=== PATIENT | female | born 1990 | race Caucasian/White ===

== ENCOUNTER 2023-11-12 16:43 | Emergency (ER) | payer OTHER, SELFPAY ==
[2023-11-12 16:59] VITALS: BP 129/100
[2023-11-12 18:19] VITALS: BMI 20.7
[2023-11-12 18:39] LABS: % Basophils 0.8 % (0-2); % Eosinophils 0.3 % (0-6); % Immature Granulocytes 0.3 % (0-0.5); % Lymphocytes 29.7 % (20.5-51.1); % Monocytes 8.5 % (1.7-9.3); % Neutrophils 60.4 % (42.2-75.2); Absolute Basophils 0.1 10^3/uL (0-0.2); Absolute Lymphocytes 1.9 10^3/uL (1.2-3.4); Absolute Monocytes 0.6 10^3/uL (0.1-0.6); Absolute Neutrophils 3.9 10^3/uL (1.4-6.5); Hematocrit 41.3 % (37.0-47.0); Hemoglobin 14.8 g/dL (12.0-16.0); Mean Corp Hgb Conc. 35.8 g/dL (33.0-37.0); Mean Corpuscular Volume 89.2 fL (81.0-99.0); Mean Platelet Volume 10.7 fL (7.4-10.4); Nucleated Red Blood Cells % 0 %; Platelet Count 230 10^3/uL (130-400); Red Blood Cell Count 4.63 10^6/uL (4.20-5.40); Red Cell Dist. Width 12.6 % (11.5-14.5); White Blood Cell Count 6.5 10^3/uL (4.8-10.8)
[2023-11-12 19:06] LABS: Troponin I < 0.012 ng/ml
[2023-11-12 19:09] LABS: ALT (SGPT) 13 U/L (0-35); AST (SGOT) 19 U/L (14-36); Albumin 4.9 g/dl (3.5-5.0); Alkaline Phosphatase 60 U/L (38-126); Blood Urea Nitrogen 13 mg/dl (7-17); Calcium 9.7 mg/dl (8.4-10.2); Carbon Dioxide 22 mmol/L (22-30); Chloride 105 mmol/L (98-107); Estimated Creatinine Clearance 89 ml/min; Glucose 90 mg/dl (70-99); Potassium 3.6 mmol/L (3.5-5.1); Sodium 137 mmol/L (135-145); Total Bilirubin 0.9 mg/dl (0.2-1.3); Total Protein 7.8 g/dl (6.3-8.2); eGFR > 60.00
[2023-11-12 19:10] LABS: HCG, Serum Qualitative Screen Negative
--- NOTE | 2023-11-12 19:16 | ED.GENMED ---
History of Present Illness
<Gli Rodriguez DO - Last Filed: 11/12/23 20:49>
General
Chief Complaint: Anxiety
Source: patient, significant other and family
Time Seen by Provider: 11/12/23 18:26
History of Present Illness
History of Present Illness:
33-year-old female who presents with a variety of complaints. She states that she recently was placed on antibiotics for dental as she was on antibiotic for about a month. The patient states that recently she has been nauseous and having
headaches. She also has had pain under her left breast. Patient was seen in emergency department at an outside hospital. She was given Ativan with a suspicion that anxiety had a strong component. Patient did take it a little bit at home but did
not resolve symptoms. She did feel more relaxed. Patient also admits that she was treated by chiropractor prior to all the symptoms. She reports that when she looks up she gets dizzy and is also has some vision changes and gait disturbance. At
home she has been concerned about lots of different diagnoses including Parkinson's, MS, stroke, CSF leak. Patient mostly complains of today neck pain and headache. She also reports the nausea.
Past History
<Gil Rodriguez DO - Last Filed: 11/12/23 20:49>
Past History
ED Past Medical History: Psychiatric (Anxiety) and Other (Migraines)
Social History
Tobacco: Non-smoker
Phy Exam
<Gil Rodriguez DO - Last Filed: 11/12/23 20:49>
Physical Exam
Physical Exam:
CONSTITUTIONAL Patient alert and oriented to person, place and time. Well-appearing. Vital signs reviewed.
HEAD atraumatic, normocephalic.
EYES eyelids normal to inspection, Pupils equally round and reactive to light, Extraocular muscles intact, Conjunctiva normal, Sclera normal.
NECK normal range of motion, Trachea midline, no jugular venous distention.
RESPIRATORY CHEST No respiratory distress noted, Chest expansion equal, Bilateral breath sounds clear.
CARDIOVASCULAR regular rate and rhythm, Heart sounds normal.
ABDOMEN abdomen nontender, Bowel sounds normal. No distention.
BACK normal inspection, no obvious deformities, no CVA tenderness
UPPER EXTREMITY range of motion normal, Motor strength normal, no cyanosis, no edema.
LOWER EXTREMITY range of motion normal, Motor strength normal, no cyanosis, no edema.
NEURO Speech normal, No focal motor deficits, Pam coma scale 15, Memory normal, Cranial Nerves intact to screening exam.
SKIN skin warm, dry, and normal in color.
PSYCHIATRIC patient oriented to person place and time, anxious affect.
Course
<Gil Rodrigeuz DO - Last Filed: 11/12/23 20:49>
Orders/Labs/Results
Orders:
Orders
11/12/23 17:03
Electrocardiogram (*1) Urgent
Reason for Study: Shortness of Breath
EKG- Treatment ONCE
Test Result ONCE
11/12/23 18:30
CMP [Comprehensive Metabolic Panel] Urgent
Complete Blood Count/With Diff Urgent
HCG, Serum Qualitative Screen Urgent
11/12/23 18:32
Troponin I Urgent
11/12/23 18:56
CT Head & Neck Angio W/wo IV Urgent
Comment:
Reason For Exam: MUÑOZ, dizzy, vision changes after chiropractor adjus
Abnormal Lab Results
11/12/23
18:30
MCH 32.0 H pg
(27.0-31.0)
MPV 10.7 H fL
(7.4-10.4)
11/12/23 18:30
11/12/23 18:30
Vital Signs
Initial and Last Documented VS:
Initial Vital Signs
Temp Pulse Resp BP Pulse Ox
98.5 F 102 16 129/100 100
11/12/23 16:59 11/12/23 16:59 11/12/23 16:59 11/12/23 16:59 11/12/23 16:59
Last Documented Vital Signs
Temp Pulse Resp BP Pulse Ox
98.5 F 67 18 108/71 100
11/12/23 16:59 11/12/23 21:30 11/12/23 21:30 11/12/23 21:30 11/12/23 21:30
<Pepe Duenas MD - Last Filed: 11/13/23 19:13>
Orders/Labs/Results
Orders:
Orders
11/12/23 17:03
Electrocardiogram (*1) Urgent
Reason for Study: Shortness of Breath
EKG- Treatment ONCE
Test Result ONCE
11/12/23 18:30
CMP [Comprehensive Metabolic Panel] Urgent
Complete Blood Count/With Diff Urgent
HCG, Serum Qualitative Screen Urgent
11/12/23 18:32
Troponin I Urgent
11/12/23 18:56
CT Head & Neck Angio W/wo IV Urgent
Comment:
Reason For Exam: MUÑOZ, dizzy, vision changes after chiropractor adjus
Abnormal Lab Results
11/12/23
18:30
MCH 32.0 H pg
(27.0-31.0)
MPV 10.7 H fL
(7.4-10.4)
11/12/23 18:30
11/12/23 18:30
Vital Signs
Initial and Last Documented VS:
Initial Vital Signs
Temp Pulse Resp BP Pulse Ox
98.5 F 102 16 129/100 100
11/12/23 16:59 11/12/23 16:59 11/12/23 16:59 11/12/23 16:59 11/12/23 16:59
Last Documented Vital Signs
Temp Pulse Resp BP Pulse Ox
98.5 F 67 18 108/71 100
11/12/23 16:59 11/12/23 21:30 11/12/23 21:30 11/12/23 21:30 11/12/23 21:30
<Gil Rodriguez DO - Last Filed: 11/12/23 20:49>
MDM/Problems Addressed
MDM/Problems Addressed:
Anxiety
<Gil Rodriguez DO - Last Filed: 11/12/23 20:49>
*Pulse Oximetry
Patient hypoxic: no
*EKG
Interpreted by ED Provider?: Yes
Interpretation: normal
Rate: normal
Rhythm: sinus
[place]: normal axis
QRS Pattern: normal QRS
Ischemia: no ischemia
*Lingo Cleaner Interpretation
Rate: normal
Interpretation: normal
Rhythm: sinus
*Critical Care Note
Total Time (30-74mins, 75-104mins- exclusive of procedures): Not Applicable
Data Reviewed
Source: patient and significant other
Further Testing Considered But Not Given:
Considered troponin but EKG normal. Has had a chest x-ray at [place].
<Gil Rodriguez DO - Last Filed: 11/12/23 20:49>
Patient Management
Escalation/DeEscalation of care consider admission/obs:
Patient appears quite well. All studies negative. Do suspect a strong component of anxiety that she is worried about certain diagnoses that I do not find. Question whether taking a month of antibiotics have messed with her gut pascual. Did
recommend probiotics or live culture yogurt. Await CTA and if negative okay for discharge and outpatient follow-up
<Pepe Duenas MD - Last Filed: 11/13/23 19:13>
Update Note
Update Note:
CTA negative. Discharged to follow-up
ED Attending Note
<Gil Rodriguez DO - Last Filed: 11/12/23 20:49>
-
Portions of this chart may have been created with voice recognition software.� Occasional wrong word or��sound alike� substitutions may have occurred due to the inherent limitations of voice recognition software.
Discharge Plan
Departure
Patient Disposition: Home (Routine Discharge)
Date of Disposition: 11/12/23
Time of Disposition: 22:05
Patient with high blood pressure during this ER visit?: No
Discharge Problem:
Nausea/headaches
Instructions: Headache, Adult ED, Acute Nausea and Vomiting
Prescriptions:
No Action
lorazepam [Ativan] 0.5 mg Tablet
0.5 mg PO TID PRN (Reason: anxiety)
Referrals:
Bartolome Keyes, DO [Family Provider] - Follow up in 2-3 days
Interventions
Interventions:
*Risk Screen - Suicide Last Done: 11/12/23 18:19
*General Assessment Last Done: 11/12/23 18:19
*Neglect/Abuse Screening Last Done: 11/12/23 18:19
ED- Fall Risk Assessment Last Done: 11/12/23 18:19
*ED COVID-19 Vaccine History Last Done: 11/12/23 18:19
*Nursing Disposition Last Done: 11/12/23 22:13
ED-Psychological Assessment Last Done: 11/12/23 18:25
Discharge Date and Time
Discharge Date/Time: 11/12/23 22:13
Print Language: PERSIAN
[2023-11-12 21:30] VITALS: BP 108/71
== END 2023-11-12 22:13 | disposition home or self-care (01) ==
LOC: EMR 16:43
PROVIDERS: EMERGENCY PHYSICIAN Emergency Medicine; FAMILY PHYSICIAN Family Medicine
DX: R51.9 Headache, unspecified (principal); R11.0 Nausea; M54.2 Cervicalgia; R07.89 Other chest pain; R06.02 Shortness of breath; R42 Dizziness and giddiness; R26.9 Unspecified abnormalities of gait and mobility; F41.9 Anxiety disorder, unspecified
CPT/HCPCS: 99285; 70496; 70498; 80053; 84484; 84703; 85025; 93005; Q9967